=== PATIENT | female | born 2000 | race Caucasian/White ===

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

== ENCOUNTER 2020-04-07 15:25 | Outpatient (CLI) | payer MEDICAID | END 2020-04-07 23:59 | disposition home or self-care (01) | LOC: LAB.R 15:25 | PROVIDERS: ATTEND Pediatrics | DX: J02.9 Acute pharyngitis, unspecified (principal); Z20.828 Contact with and (suspected) exposure to other viral communicable diseases ==

== ENCOUNTER 2020-05-30 08:53 | Outpatient (CLI) | payer MEDICAID ==
--- NOTE | 2020-05-30 09:24 | XRAY Report ---
PROCEDURE: Cervical Spine 2 View INDICATIONS: NERVE COMPRESSION TECHNIQUE: 3 view(s) of the cervical spine were acquired. COMPARISON: None. FINDINGS: Bones: Normal cervical spine vertebral body height and alignment. No degenerative changes. No suspici ous lytic or blastic osseous lesion. Soft tissues: No prevertebral soft tissue swelling. IMPRESSION: Normal cervical spine radiographs. Reviewed by: Jr Agustin MD on 05/30/2020 9:23 AM PST Approved by: Jr Agustin MD on 05/30/2020 9:23 AM PST Station ID: [id number]
--- NOTE | 2020-05-30 09:25 | XRAY Report ---
PROCEDURE: Thoracic Spine 2 View INDICATIONS: Nerve compression TECHNIQUE: 3 views of the thoracic spine were acquired. COMPARISON: None. FINDINGS: Bones: Normal thoracic vertebral body height and alignment. No degenerative changes. No suspicious ly tic or blastic osseous lesion. Soft tissues: No paravertebral stripe thickening. IMPRESSION: Normal thoracic spine radiographs. Reviewed by: Jr Agustin MD on 05/30/2020 9:23 AM [facility] Approved by: Jr Agustin MD on 05/30/2020 9:23 AM [facility] Station ID: [id number]
== END 2020-05-30 08:54 | disposition home or self-care (01) ==
LOC: DI.N 08:53
PROVIDERS: ATTEND Pediatrics
DX: M54.6 Pain in thoracic spine (principal); G56.31 Lesion of radial nerve, right upper limb

== ENCOUNTER 2021-02-19 08:00 | Outpatient (CLI) | payer MEDICAID ==
[2021-02-19 21:00] LABS: CHLAMYDIA TRACHOMATIS DNA NEGATIVE (NEGATIVE); NEISSERIA GONORRHOEAE DNA NEGATIVE (NEGATIVE); TRICHOMONAS VAGINALIS DNA NEGATIVE (NEGATIVE)
== END 2021-02-19 08:01 | disposition home or self-care (01) ==
LOC: LAB 08:00
PROVIDERS: ATTEND Obstetrics & Gynecology
DX: Z11.3 Encounter for screening for infections with a predominantly sexual mode of transmission (principal)
CPT/HCPCS: 87491; 87591; 87661

== ENCOUNTER 2022-01-04 08:00 | Outpatient (CLI) | payer BC, MEDICAID ==
[2022-01-04 19:19] LABS: BACTERIAL VAGINOSIS DNA POSITIVE (NEGATIVE); CANDIDA GLABRATA DNA NEGATIVE (NEGATIVE); CANDIDA GROUP DNA NEGATIVE (NEGATIVE); CANDIDA KRUSEI DNA NEGATIVE (NEGATIVE); TRICHOMONAS VAGINALIS DNA NEGATIVE (NEGATIVE)
== END 2022-01-04 23:59 | disposition home or self-care (01) ==
LOC: LAB 08:00
PROVIDERS: ATTEND Nurse Practitioner
DX: N89.8 Other specified noninflammatory disorders of vagina (principal)
CPT/HCPCS: 81514

== ENCOUNTER 2022-03-14 08:00 | Outpatient (CLI) | payer BC, MEDICAID ==
[2022-03-14 18:15] LABS: BACTERIAL VAGINOSIS DNA POSITIVE (NEGATIVE); CANDIDA GLABRATA DNA NEGATIVE (NEGATIVE); CANDIDA GROUP DNA NEGATIVE (NEGATIVE); CANDIDA KRUSEI DNA NEGATIVE (NEGATIVE); TRICHOMONAS VAGINALIS DNA NEGATIVE (NEGATIVE)
[2022-03-14 19:15] LABS: CHLAMYDIA TRACHOMATIS DNA NEGATIVE (NEGATIVE); NEISSERIA GONORRHOEAE DNA NEGATIVE (NEGATIVE)
== END 2022-03-14 23:59 | disposition home or self-care (01) ==
LOC: LAB.WC 08:00
PROVIDERS: ATTEND Obstetrics & Gynecology
DX: N89.8 Other specified noninflammatory disorders of vagina (principal); Z11.3 Encounter for screening for infections with a predominantly sexual mode of transmission
CPT/HCPCS: 81514; 87491; 87591; 87661

== ENCOUNTER 2023-09-16 08:30 | Outpatient (CLI) | payer BC, MEDICAID | END 2023-09-16 08:45 | disposition home or self-care (01) | LOC: LAB.N 08:30 | PROVIDERS: ATTEND Nurse Practitioner | DX: R07.0 Pain in throat (principal) | CPT/HCPCS: 87070 ==